=== PATIENT | female | born 1980 | race Two or more races ===

== ENCOUNTER 2019-09-22 13:56 | Emergency (ER) | payer MEDICAID ==
[~2019-09-22] VITALS: Ht 167.6 cm; Wt 27.2 kg
[2019-09-22 14:08] VITALS: BP 112/79
[2019-09-22 14:36] LABS: Basophils # (auto) 0 uL; Eosinophils # (auto) 0.2 uL; Lymphocytes # (auto) 2.1 uL; Mean Corpuscular Hemoglobin 22.1 pg (28.0-32.0); Mean Corpuscular Hgb Conc. 30.7 g/dL (32.0-36.0); Monocytes # (auto) 0.6 uL; Nucleated Red Blood Cells % 0.1 %; White Blood Cell 7.7 10^3/uL (4.4-10.8)
[2019-09-22 14:38] LABS: Basophils % (auto) 0.6 % (0.0-2.0); Eosinophils % (auto) 2.1 % (0.0-7.0); Hemoglobin 10.1 g/dL (12.2-16.2); Lymphocytes % (auto) 26.8 % (10.0-50.0); Mean Corpuscular Volume 72.1 fL (80.0-100.0); Monocytes % (auto) 7.7 % (0.0-12.0); Neutrophils # (auto) 4.9 uL; Neutrophils % (auto) 62.8 % (37.0-80.0); Platelet Count (auto) 420 10^3/uL (140-450); Red Blood Cells 4.57 10^6/uL (4.0-5.20); Red Cell Distribution Width 19.8 % (11.8-14.3)
[2019-09-22 15:22] LABS: Albumin 3.4 g/dL (3.4-5.0); Anion Gap 7 (5-15); BUN/Creatinine Ratio 25.8; Blood Alcohol < 3.0 mg/dL (0-5); Blood Urea Nitrogen 17 mg/dL (7-18); Calcium 8.3 mg/dL (8.5-10.1); Carbon Dioxide 23 mmol/L (21-32); Chloride 106 mmol/L (98-107); GFR African American 129 mL/min; GFR Non-African American 107 mL/min; Glucose 75 mg/dL (74-106); Potassium 3.9 mmol/L (3.5-5.1); Sodium 136 mmol/L (136-145)
[2019-09-22 15:25] LABS: Alanine Aminotransferase 19 U/L (13-56); Alkaline Phosphatase 80 U/L (45-117); Aspartate Aminotransferase 18 U/L (15-37); Bilirubin, Total 0.2 mg/dL (0.2-1.0); Total Protein 7.4 g/dL (6.4-8.2)
== END 2019-09-22 15:25 | disposition left against medical advice (07) ==
LOC: ER 13:56 → EDBD 13:56 → ER 15:25
DX: S16.1XXA Strain of muscle, fascia and tendon at neck level, initial encounter (principal); S09.8XXA Other specified injuries of head, initial encounter; R42 Dizziness and giddiness; W03.XXXA Other fall on same level due to collision with another person, initial encounter; Y93.89 Activity, other specified; Y92.89 Other specified places as the place of occurrence of the external cause; Y99.8 Other external cause status
CPT/HCPCS: 36415; 80053; 80320; 85025

== ENCOUNTER 2020-02-07 20:42 | Emergency (ER) | payer MEDICAID ==
[~2020-02-07] VITALS: Ht 162.6 cm; Wt 67.6 kg
[2020-02-07 21:09] VITALS: BP 110/62
== END 2020-02-07 23:50 | disposition left against medical advice (07) ==
LOC: ER 20:43
DX: M79.672 Pain in left foot (principal); Z53.21 Procedure and treatment not carried out due to patient leaving prior to being seen by health care provider
CPT/HCPCS: 73630

== ENCOUNTER 2020-08-24 21:08 | Emergency (ER) | payer MEDICAID ==
[~2020-08-24] VITALS: Ht 165.1 cm; Wt 70.3 kg
[2020-08-24 21:30] VITALS: BP 111/66
== END 2020-08-24 22:20 | disposition home or self-care (01) ==
LOC: EDBD 21:08 → ER 21:12
DX: S39.012A Strain of muscle, fascia and tendon of lower back, initial encounter (principal); S16.1XXA Strain of muscle, fascia and tendon at neck level, initial encounter; W19.XXXA Unspecified fall, initial encounter; Y93.89 Activity, other specified; Y92.89 Other specified places as the place of occurrence of the external cause; Y99.8 Other external cause status
CPT/HCPCS: 70450; 72125; 72131

== ENCOUNTER 2021-07-20 10:49 | Emergency (ER) | payer MEDICAID ==
[~2021-07-20] VITALS: Ht 160 cm; Wt 74.8 kg
[2021-07-20 12:21] VITALS: BP 128/88
== END 2021-07-20 12:34 | disposition home or self-care (01) ==
LOC: EDBD 10:49 → ER 10:49
DX: S63.502A Unspecified sprain of left wrist, initial encounter (principal); S63.92XA Sprain of unspecified part of left wrist and hand, initial encounter; W01.198A Fall on same level from slipping, tripping and stumbling with subsequent striking against other object, initial encounter; Y93.89 Activity, other specified; Y92.89 Other specified places as the place of occurrence of the external cause; Y99.8 Other external cause status
CPT/HCPCS: 29125; 73110; 73130

== ENCOUNTER 2022-08-18 22:05 | Emergency (ER) | payer MEDICAID ==
[~2022-08-18] VITALS: Ht 162.6 cm; Wt 74.0 kg
[2022-08-19] MEDS ORDERED: AMOX-277 PO (02:21)
[2022-08-19] MEDS ORDERED: TRIA0.02 TOP (02:21)
[2022-08-19] MEDS ORDERED: TETANUS-DIPTH-ACEL PERTUSSIS 0.5ML SYR Tdap IM ONE (02:30)
[2022-08-19 03:15] VITALS: BP 112/60
== END 2022-08-19 03:15 | disposition home or self-care (01) ==
LOC: ER 22:05
DX: S91.352A Open bite, left foot, initial encounter (principal); J02.9 Acute pharyngitis, unspecified; W54.0XXA Bitten by dog, initial encounter; Y93.89 Activity, other specified; Y92.89 Other specified places as the place of occurrence of the external cause; Y99.8 Other external cause status
CPT/HCPCS: 90471; 90715

== ENCOUNTER 2024-01-18 22:32 | Emergency (ER) | payer MEDICAID ==
[~2024-01-18] VITALS: Ht 162.6 cm; Wt 82.0 kg
[~2024-01-18 22:32] MED LIST: AMOX875T4 PO; TRIA0.02 TOP
[2024-01-18 22:39] VITALS: BP 118/82; PULSE 78; RESP 18; O2SAT 99
== END 2024-01-19 02:00 | disposition left against medical advice (07) ==
LOC: ER 22:32 → EDBD 22:32 → ER 01-19 02:00
DX: J45.909 Unspecified asthma, uncomplicated (principal); Z53.21 Procedure and treatment not carried out due to patient leaving prior to being seen by health care provider